=== PATIENT | female | born 1940 | race Caucasian/White ===

== ENCOUNTER → 2020-05-23 | Outpatient (CLI) | payer MEDICARE, BC ==
[~2020-05-23] MED LIST: ACET-1600 PO; ASCO500T8 PO; ASPI81TA45 PO; BIOT10TA PO; CARV6.252 PO; CHOL500045 PO; COLE1TAB5 PO; COLLAGEN PROTEIN PO; FURO20TA3 PO; GLUC-149 PO; L.AC1CAP6 PO; LEVO75TA5 PO; METH500T5 PO; MULT-717 PO; OMEG-133 PO; POTA99TA2 PO; PSYL0.5215 PO; UBID100C41 PO; [UNRECOGNIZED DRUG - OTHER] PO; magnesium PO
[2020-05-23 12:42] LABS: BASOPHILS % (AUTO) 2 % (0-1); EOSINOPHILS % (AUTO) 5 % (1-7); LYMPHOCYTES % (AUTO) 27 % (22-44); MEAN CORPUSCULAR HEMOGLOBIN 31.4 pg (27.0-34.8); MEAN CORPUSCULAR HGB CONC 33.2 g/dL (32.4-35.8); MEAN PLATELET VOLUME 9.2 fL (7.4-10.4); MONOCYTES % (AUTO) 9 % (2-9); NEUTROPHILS % (AUTO) 57 % (42-75); PLATELET COUNT 236 x10^3/uL (130-400); RED BLOOD COUNT 4.15 x10^6/uL (3.82-5.3); RED CELL DISTRIBUTION WIDTH 15.1 % (9.6-15.2)
[2020-05-23 12:46] LABS: MD NO
[2020-05-23 12:55] LABS: ALANINE AMINOTRANSFERASE 22 U/L (12-78); ALBUMIN 3.9 g/dL (3.4-5.0); ANION GAP 4 mmol/L (5-15); CALCIUM 8.7 mg/dL (8.5-10.1); CHLORIDE 107 mmol/L (98-107); CREATININE 1.02 mg/dL (0.55-1.02)
[2020-05-23 12:57] LABS: ALKALINE PHOSPHATASE 98 U/L (45-117); BILIRUBIN,TOTAL 1.7 mg/dL (0.2-1.0); TOTAL PROTEIN 7.7 g/dL (6.4-8.2)
== END | disposition home or self-care (01) ==
LOC: STAR 11:16
PROVIDERS: ATTEND Obstetrics & Gynecology Gynecology
DX: Z01.812 Encounter for preprocedural laboratory examination (principal); Z20.828 Contact with and (suspected) exposure to other viral communicable diseases; Z95.0 Presence of cardiac pacemaker; Q79.1 Other congenital malformations of diaphragm
CPT/HCPCS: 36415; 71046; 80053; 85025; 87635; 93005

== ENCOUNTER 2020-05-27 05:39 | Day surgery (SDC) | payer MEDICARE, BC ==
[~2020-05-27] VITALS: Ht 160 cm; Wt 70.1 kg
[2020-05-27 06:11] VITALS: BP 158/83
[2020-05-27 06:26] LABS: MICROSCOPIC INDICATED
[2020-05-27] MEDS ORDERED: LACTATED RINGERS 1,000 ML IV SCH (06:30)
[2020-05-27] MEDS ORDERED: CHLORHEXIDINE 15 ML UDC MM ONE (06:30)
[2020-05-27] MEDS ORDERED: LIDOCAINE/PF 1%, 30ML ONE (07:05)
[2020-05-27] MEDS ORDERED: INDIGO CARMINE 0.8%, 5ML ONE (07:05)
[2020-05-27] MEDS ORDERED: FUROSEMIDE 20 MG/2 ML ONE (07:05)
[2020-05-27] MEDS ORDERED: EPINEPHRINE 1 MG/ML, 1ML ONE (07:05)
[2020-05-27] MEDS ORDERED: FENTANYL PF 250 MCG/5ML ONE (07:18)
[2020-05-27] MEDS ORDERED: NEOSTIGMINE 1 MG/ML, 10ML ONE (07:27)
[2020-05-27] MEDS ORDERED: SUCCINYLCHOLINE 20 MG/ML, 10ML ONE (07:27)
[2020-05-27] MEDS ORDERED: ROCURONIUM 10MG/ML,5ML ONE (07:27)
[2020-05-27] MEDS ORDERED: GLYCOPYRROLATE 0.2MG/1ML, 5ML ONE (07:27)
[2020-05-27] MEDS ORDERED: ONDANSETRON 2MG/ML, 2ML ONE (07:27)
[2020-05-27] MEDS ORDERED: DEXAMETHASONE 4 MG/ML, 1ML ONE (07:27)
[2020-05-27] MEDS ORDERED: PHENYLEPHRINE 10 MG/ML ONE (07:27)
[2020-05-27] MEDS ORDERED: ESMOLOL 100 MG/10 ML ONE (07:27)
[2020-05-27] MEDS ORDERED: PROPOFOL 10 MG/ML, 20ML ONE (07:27)
[2020-05-27] MEDS ORDERED: CEFAZOLIN 1,000 MG ONE (07:27)
[2020-05-27] MEDS ORDERED: EPHEDRINE 50 MG/ML, 1ML IVPush PRN (09:00)
[2020-05-27] MEDS ORDERED: HALOPERIDOL 5 MG/ML IV PRN (09:00)
[2020-05-27] MEDS ORDERED: METHOCARBAMOL 1,000 MG in DEXTROSE 5% 100 ML IV PRN (09:00)
[2020-05-27] MEDS ORDERED: ONDANSETRON 2MG/ML, 2ML IVPush PRN (09:00)
[2020-05-27] MEDS ORDERED: PROMETHAZINE 25 MG/ML, 1ML IVPush PRN (09:00)
[2020-05-27] MEDS ORDERED: LORazepam 2 MG/ML, 1ML IVPush PRN (09:00)
[2020-05-27] MEDS ORDERED: OXYcodone 5 MG/5 ML ORAL.SOL UDC PO PRN (09:00)
[2020-05-27] MEDS ORDERED: ACETAMINOPHEN 325 MG TABLET PO PRN (09:00)
[2020-05-27] MEDS ORDERED: HYDROmorphone 1 MG/ML, 1ML INJ IVPush PRN (09:00)
[2020-05-27] MEDS ORDERED: hydrALAzine 20 MG/ML, 1ML IV PRN (09:00)
[2020-05-27] MEDS ORDERED: FENTANYL PF 100 MCG/2ML IV PRN (09:00)
[2020-05-27] MEDS ORDERED: LABETALOL 5MG/ML, 20ML IV PRN (09:00)
[2020-05-27] MEDS ORDERED: HYDR-3240 PO (10:06)
== END 2020-05-27 16:15 | disposition home or self-care (01) ==
LOC: OUT 05:39
PROVIDERS: ATTEND Obstetrics & Gynecology Gynecology
DX: N81.12 Cystocele, lateral (principal); N81.5 Vaginal enterocele; N81.6 Rectocele; I11.0 Hypertensive heart disease with heart failure; I50.9 Heart failure, unspecified; E78.5 Hyperlipidemia, unspecified; Z88.3 Allergy status to other anti-infective agents; Z88.8 Allergy status to other drugs, medicaments and biological substances; Z91.018 Allergy to other foods; Z90.710 Acquired absence of both cervix and uterus; Z79.82 Long term (current) use of aspirin; Z79.899 Other long term (current) drug therapy; Z98.890 Other specified postprocedural states; Z90.49 Acquired absence of other specified parts of digestive tract; Z95.0 Presence of cardiac pacemaker
CPT/HCPCS: 57240; 57282; 81001; 87086; J0171; J0330; J0690; J1100; J2370; J2405; J2704; J2710; J3010; J7120; J1940